=== PATIENT | female | born 1990 | race Caucasian/White ===

== ENCOUNTER → 2022-12-04 | Outpatient (CLI) | payer BC | LOC: DIA.ED 08:06 | DX: O24.419 Gestational diabetes mellitus in pregnancy, unspecified control (principal); I10 Essential (primary) hypertension | CPT/HCPCS: G0270 ==

== ENCOUNTER 2023-01-07 07:29 | Inpatient (IN) | payer BC ==
[2023-01-07] VITALS (12 sets, daily range): BP systolic 133–155; BP diastolic 65–94; PULSE 70–94; TEMP 98.9
[~2023-01-07] VITALS: Ht 162.6 cm; Wt 100.5 kg
[~2023-01-07 07:29] MED LIST: FREESTYLE PREC1 EAC5 MC; GLUCOSE TEST ST1 DEV; NORMODYNE100 MG PO; [UNRECOGNIZED DRUG - SUPPLY]
--- NOTE | 2023-01-07 19:15 | NUR ---
PT AMBULATED TO LDR6 WITH AT SIDE FOR IOL WITH CYTOTEC. THE PATIENT DENIES LEAKING OF FLUIDS OR FEELING CONTRACTIONS. STATES SHE HAS BEEN FEELING BABY MOVE. EFM CATEGORY I TRACING. CONTRACTIONS 4-6 MINUTES APART ON TOCO. U/A COLLECTED. IV STARTED AND LABS SENT. CALLED , SEE PHYSICIAN NOTIFICATION.
[2023-01-07] MEDS ORDERED: PNV-SELECT1 TAB PO (19:40)
[2023-01-07] MEDS ORDERED: NORMODYNE200 MG PO (19:40)
[2023-01-07] MEDS ORDERED: VALTREX 50500 MG/TAB PO (19:40)
[2023-01-07] MEDS ORDERED: NATURAL IRON65 MG PO (19:42)
[2023-01-07 20:45] LABS: COLLECTION METHOD CLEAN CATCH
[2023-01-07 20:47] LABS: BASO % 0.3 % (0.0-2.0); EOS # 0.1 K/mm3 (0.0-0.7); EOS % 1.4 % (0.0-4.0); GRAN # 6.7 K/mm3 (1.4-6.5); HEMOGLOBIN 11.4 g/dl (12.5-16.0); LYMPH # 1.7 K/mm3 (1.2-3.4); LYMPH % 18.2 % (20.0-51.0); MEAN CELL VOLUME 82 fl (80.0-100.0); MEAN CORPUSCULAR HEMOGLOBIN 28 pg (27-31); MEAN CORPUSCULAR HGB CONC 34 g/dl (33.0-37.0); MEAN PLATELET VOLUME 11.2 fl (7.4-10.4); MONO # 0.6 K/mm3 (0.1-0.6); MONO % 6.8 % (1.7-9.3); PLATELET COUNT 235 K/mm3 (130-400)
[2023-01-07 20:50] LABS: HEMATOCRIT 33.6 % (37.0-47.0); SQUAMOUS EPITHELIAL 0-2 /hpf (0-10); URINE BACTERIA Rare /hpf (NONE SEEN); URINE RBC 0-2 /hpf (0-2); URINE WBC 0-2 /hpf (0-2)
[2023-01-07 20:54] LABS: PH 5.5 (5-8); URINE APPEARANCE Clear (CLEAR/HAZY); URINE COLOR Yellow (YELLOW); URINE GLUCOSE Negative (NEGATIVE); URINE KETONE Negative (NEGATIVE); URINE NITRATE Negative (NEGATIVE); URINE PROTEIN(semi-quant) TRACE (NEGATIVE); URINE UROBILINOGEN 0.2 (NEGATIVE)
[2023-01-07 20:55] LABS: URINE BLOOD TRACE-INTACT (NEGATIVE)
[2023-01-07 21:14] LABS: ALBUMIN 3.2 gm/dL (3.5-5.0); BILIRUBIN,TOTAL 0.2 mg/dL (0.2-1.2); CALCIUM 9.8 mg/dL (8.4-10.2); CREATININE, serum 0.78 mg/dL (0.57-1.11); POTASSIUM 4.1 mmol/L (3.5-4.5); TOTAL PROTEIN 6.2 gm/dL (6.2-8.1)
[2023-01-08] VITALS (73 sets, daily range): BP systolic 114–190; BP diastolic 8–99; PULSE 70–115; TEMP 98–98.7
--- NOTE | 2023-01-08 06:15 | NUR ---
PT SITTING UP AT BEDSIDE TO HAVE EPIDURAL PLACED. ALEXANDRA ACOSTA IN THE ROOM AT 0600. THE PATIENT TOLERATED PROCEDURE WELL. SINGLE SHOT GIVEN AT 0606.
--- NOTE | 2023-01-08 07:15 | NUR ---
EVANS CATHETER PLACED AT THIS TIME. SVE 1-2/-3. PT TOLERATED WELL. EFM TRACING CAT 1.
--- NOTE | 2023-01-08 08:55 | NUR ---
0855 DR. MARIA IN ROOM WITH JACK SOLER. SHAHAB AT THIS TIME 1-/-3. AROM LARGE AMOUNT OF CLEAR FLUID AT THIS TIME. EFM TRACING CAT 1.
--- NOTE | 2023-01-08 10:10 | NUR ---
PT CALLED NURSE INTO ROOM FOR INCREASE IN PAIN. PT FELT CATHETER WAS CAUSING BLADDER SPASMS. THIS RN REMOVED CATHETER AND PT FELT BETTER. PT STILL WAS CRAMPING WITH CTX. CALLED KARLA AT THIS TIME. 1015 KARLA DOSED EPIDURAL. PT TOLERATED WELL.
--- NOTE | 2023-01-08 10:30 | NUR ---
1030 DR. MARIA IN ROOM TO PLACE IUPC AND FSE. SVE /-2. PT SHOWS DIFFICULTY RELAXING WITH SVE. IUPC AND SVE PLACED.
--- NOTE | 2023-01-08 10:49 | NUR ---
1049 CALLED KARLA FOR INCREASE IN PAIN. EPIDURAL REMOVED AT THIS TIME TO REPLACE. 1053 SINGLE SHOT ADMINISTERED PER . PT TOLERATED WELL. VS STABLE. EFM TRACING CAT 1. 1056 PITOCIN CUT IN HALF TO 5MU DUE TO HYPERSTIMULATION OF UTERUS. CTX Q1 MINUTE, 8 CTX NOTED IN 10 MINUTE PERIOD. 1100 PT WEDGED LEFT AFTER EPIDURAL PLACEMENT. LATE DECELERATION NOTED IMMEDIATELY. PT PLACED LEFT LATERAL. BOLUS GOING. LATE DECELERATIONS UNRESOLVED. 1109 PITOCIN TURNED OFF. BP NOTED TO BE 106/58. 1116 1 DOSE OF EPHEDRINE GIVEN. LR #4 BOLUSING.
--- NOTE | 2023-01-08 13:10 | NUR ---
DR. MARIA IN ROOM FOR SVE OF /-3. CONTINUING POC.
--- NOTE | 2023-01-08 15:30 | NUR ---
THIS RN IN ROOM FOR SVE. /-2. PT TOLERATED WELL. DR. MARIA UPDATED. REPOSITIONING PATIENT AT THIS TIME.
--- NOTE | 2023-01-08 18:20 | NUR ---
1819- BEDSIDE SHIFT REPORT RECEIVED, CARE ASSUMED. 1822- DR MARIA AT BEDSIDE, SVE . STATES TO LEAVE PT IN RIGHT LATERAL WITH STIRRUP BECAUSE SHE HAS A THICKER LIP OF CERVIX ON RIGHT SIDE. 1909- PT REPORTS FEELING SOME PRESSURE IN HER BOTTOM. REASSURANCE PROVIDED THAT THIS WOULD BE EXPECTED WITH HER DILATION AND IS A GOOD SIGN OF LABOR PROGRESSION. WILL CHECK HER CERVIX AT 1929. 1929- DR MARIA TO BEDSIDE, SVE COMPLETE AND +3. 1934- EVANS CATHETER REMOVED, PT POSITIONED IN FOOTPEDALS AND PUSHING DISCUSSED. 1936- PT BEGINS COACHED PUSHING WITH CONTRACTIONS. 1949- DR MARIA AT BEDSIDE FOR DELIVERY. NURSERY NURSE CALLED FOR DELIVERY. 1951- SPONTANEOUS VAGINAL DELIVERY OF VIABLE FEMALE, VIGOROUS, TO MOTHER'S ABDOMEN AND CARE OF NURSERY NURSE. 1957- SPONTANEOUS DELIVERY OF PLACENTA, EXAMINED BY DR MARIA. DR MARIA ORDERS RECTAL CYTOTEC FOR INCREASED BLEEDING. 2002- RECTAL CYTOTEC 600MCG GIVEN BY DR MARIA DURING REPAIR. 2009- REPAIR COMPLETE, PERICARE PROVIDED, ICEPACK TO PERINEUM, FEET DOWN FROM FOOTPLATES AND RECOVERY STARTED.
--- NOTE | 2023-01-08 23:10 | NUR ---
2310- IV TO SALINE LOCK. EPIDURAL CATHETER REMOVED CHARTED. PT ASSISTED TO AMBULATE TO BATHROOM, ABLE TO VOID 200ML WITHOUT DIFFICULTY. PT PERFORMS PERICARE. CLEAN GOWN,PAD, AND PANTIES PROVIDED. NORMAL LOCHIA DISCUSSED. 2320- PT AMBULATES TO ROOM 216. BELONGINGS AND BABY WITH PT. PT ORIENTED TO ROOM AND CALL LIGHTS. PLAN OF CARE AND BULLETIN BOARD DISCUSSED. PT VERBALIZES UNDERSTANDING AND DENIES FURTHER NEEDS AT THIS TIME.
[2023-01-09 03:10] VITALS: BP 125/82; PULSE 86; TEMP 98.1
[2023-01-09 07:28] VITALS: BP 148/84; PULSE 82; TEMP 98.1
--- NOTE | 2023-01-09 10:33 | NUR ---
Initial visit; Parents thanked Junior Assistant Manager for offering congratulations and God's blessings for the of their daughter. Junior Assistant Manager thanked family for choosing our hospital.
--- NOTE | 2023-01-09 10:50 | NUR ---
This nurse received report from Kelly Wynn RN. Pt has a second degree tear, bleeding WNL, and medication administered. This nurse assumes care from Kelly Wynn RN.
[2023-01-09 12:00] VITALS: BP 123/76; PULSE 85; TEMP 98.6
--- NOTE | 2023-01-09 12:00 | NUR ---
Pt has family visiting at bedside during this nurse hourly rounding. VS obtained. Pt denies questions, concerns, and needs.
--- NOTE | 2023-01-09 13:07 | NUR ---
Pt has family visiting at bedside and denies question, concerns, and needs.
[2023-01-09 16:22] VITALS: BP 132/68; PULSE 80; TEMP 98.6
--- NOTE | 2023-01-09 17:12 | NUR ---
Pt is attempting to breastfeed. Pt and pt spouse are watching educational videos. Pt denies questions, concerns, and needs.
[2023-01-09 20:35] VITALS: BP 139/86; PULSE 79; TEMP 97.6
[2023-01-10 07:13] VITALS: BP 137/87; PULSE 84; TEMP 98.1
--- NOTE | 2023-01-10 07:30 | NUR ---
0710 RN BEDSIDE, DISCUSSES POC WITH PT. PT VERBALIZES UNDERSTANDING AND HAS NO QUESTIONS/CONCERNS AT THIS TIME.
[2023-01-10] MEDS ORDERED: TRANDATE 200MG200 MG PO (08:26)
[2023-01-10] MEDS ORDERED: IBU600 MG PO (08:27)
--- NOTE | 2023-01-10 11:13 | NUR ---
1100 RN GIVES PT BOTH WRITTEN AND VERBAL DISCHARGE INSTRUCTIONS. PT INSTRUCTED ON SIGNS/SYMPTOMS TO LOOK OUT FOR/WHEN TO CALL MD. RN REMINDS PT OF FOLLOW UP APPOINTMENTS AND IMPORTANCE OF KEEPING THOSE. PT VERBALIZES UNDERSTANDING AND HAS NO QUESTIONS AT THIS TIME.
== END 2023-01-10 13:16 | disposition home or self-care (01) | DRG 806 ==
LOC: OB 07:29 → LDR 19:05 → OB 01-08 23:20
PROVIDERS: ADMIT Obstetrics & Gynecology
PROC: 3E0P7VZ Introduction of Hormone into Female Reproductive, Via Natural or Artificial Opening (ICD-10-PCS; 2023-01-07)
PROC: 3E033VJ Introduction of Other Hormone into Peripheral Vein, Percutaneous Approach (ICD-10-PCS; 2023-01-07)
PROC: 10E0XZZ Delivery of Products of Conception, External Approach (ICD-10-PCS; principal; 2023-01-08)
PROC: 0KQM0ZZ Repair Perineum Muscle, Open Approach (ICD-10-PCS; 2023-01-08)
PROC: 10907ZC Drainage of Amniotic Fluid, Therapeutic from Products of Conception, Via Natural or Artificial Opening (ICD-10-PCS; 2023-01-08)
DX: O10.92 Unspecified pre-existing hypertension complicating childbirth (principal); O98.32 Other infections with a predominantly sexual mode of transmission complicating childbirth; Z37.0 Single live birth; O24.420 Gestational diabetes mellitus in childbirth, diet controlled; O75.89 Other specified complications of labor and delivery; O70.1 Second degree perineal laceration during delivery; A60.09 Herpesviral infection of other urogenital tract; O99.02 Anemia complicating childbirth; D64.9 Anemia, unspecified; O99.344 Other mental disorders complicating childbirth; F41.9 Anxiety disorder, unspecified; Z3A.38 38 weeks gestation of pregnancy
CPT/HCPCS: J0360; J2401; J2590; J2795; J7120